=== PATIENT | female | born 1990 | race Caucasian/White ===

== ENCOUNTER → 2020-01-09 15:04 | Outpatient (BNVA) | payer BC, SELFPAY | PROVIDERS: Family Provider Physician Assistant Medical; Visit Provider Nurse Practitioner Women's Health | DX: R10.2 Pelvic and perineal pain (principal) | CPT/HCPCS: 87491; 87591; 87661 ==

== ENCOUNTER → 2024-06-24 18:22 | Outpatient (BNVA) | payer BC, SELFPAY | PROVIDERS: Family Provider Physician Assistant Medical; Visit Provider Emergency Medicine | DX: R30.0 Dysuria (principal) | CPT/HCPCS: 81000 ==